=== PATIENT | female | born 1960 | race Caucasian/White ===

== ENCOUNTER 2020-07-07 05:52 | Observation (INO) ==
[2020-07-07] MEDS ORDERED: ceFAZolin 1,000 MG VIAL ONE (06:11)
[2020-07-07] MEDS ORDERED: LACTATED RINGERS 1,000 ML IV SCH (06:30)
[2020-07-07] MEDS ORDERED: ceFAZolin 1,000 MG in SYRINGE 1 EACH IV ONE (06:30)
[2020-07-07] MEDS ORDERED: BUPIVACAINE 0.5% 50 ML VIAL ONE (06:32)
[2020-07-07] MEDS ORDERED: LIDOCAINE 1%/EPI INJ 20 ML VIAL ONE (06:32)
[2020-07-07 07:01] LABS: INR 1.1; PT Patient Result 11.6 SECS (9.8-11.9); Partial Thromboplastin Time 28.2 SECS (23.9-33.8)
[2020-07-07] MEDS ORDERED: ROPIVACAINE 0.5% 30 ML VIAL ONE (07:59)
[2020-07-07] MEDS ORDERED: FAMOTIDINE 20 MG/2 ML VIAL IV ONE (08:00)
[2020-07-07] MEDS ORDERED: SODIUM CHLORIDE 0.9% 1,000 ML IV PRN ×3 (09:01→17:01)
[2020-07-07] MEDS ORDERED: MORPHINE 4 MG/1 ML VIAL IV PRN (09:57)
[2020-07-07] MEDS ORDERED: ONDANSETRON 4 MG/2 ML VIAL IV PRN ×2 (09:57→10:36)
[2020-07-07] MEDS ORDERED: propofoL 200 MG/20 ML VIAL IV ONE (10:04)
[2020-07-07] MEDS ORDERED: MIDAZOLAM 2 MG/2 ML VIAL ONE (10:05)
[2020-07-07] MEDS ORDERED: LIDOCAINE 2% 5 ML VIAL ONE ×2 (10:05→17:42)
[2020-07-07] MEDS ORDERED: SEVOFLURANE 1 UNIT/15 MINUTE INH ONE ×2 (10:05→17:42)
[2020-07-07] MEDS ORDERED: fentaNYL 100 MCG/2 ML VIAL ONE (10:05)
[2020-07-07] MEDS ORDERED: DEXAMETHASONE 4 MG/1 ML VIAL ONE (10:05)
[2020-07-07] MEDS ORDERED: GLYCOPYRROLATE 0.4 MG/2 ML VIAL ONE (10:05)
[2020-07-07] MEDS ORDERED: LACTATED RINGERS 1,000 ML IV ONE ×3 (10:06→17:43)
[2020-07-07] MEDS ORDERED: ROCURONIUM 100 MG/10 ML VIAL IV ONE (10:06)
[2020-07-07] MEDS ORDERED: ACETAMINOPHEN 1,000 MG/100 ML VIAL IV ONE (10:06)
[2020-07-07] MEDS ORDERED: NEOSTIGMINE 10 MG/10 ML VIAL ONE (10:06)
[2020-07-07] MEDS ORDERED: SODIUM CHLORIDE 0.9% 1,000 ML IV ONE ×2 (10:06→17:43)
[2020-07-07] MEDS ORDERED: HYDROmorphone 2 MG/1 ML VIAL IV PRN (10:36)
[2020-07-07 16:08] LABS: Basophils % 0.3 % (0.0-0.8); Eosinophils % 0.1 % (0.00-10.9); Hematocrit 28.1 VOL% (35.7-47.0); Hemoglobin 8.8 GM/DL (12.0-16.0); Immature Granulocytes % 7.1 %; Immature Granulocytes Absolute 0.55 #; Lymphocytes # 0.5 10*3/uL (1.4-4.0); Lymphocytes % 6.4 % (21.3-54.2); Mean Corpuscular HGB Conc 31.3 GM/DL (32-36); Mean Corpuscular Volume 86.7 FL (87-102); Mean Platelet Volume 9.4 FL (9.6-12.0); Monocytes % 1.3 % (1.7-12.7); Neutrophils % 84.8 % (38.7-73.9); Platelet Count 99 T/CUMM (130-400); Red Blood Count 3.24 MC/CUMM (3.8-5.5); Red Cell Distribution Width 14.4 % (9.3-17.3); White Blood Count 7.7 T/CUMM (4-12)
[2020-07-07 16:19] LABS: INR 1.1; PT Patient Result 11.9 SECS (9.8-11.9); Partial Thromboplastin Time 26.5 SECS (23.9-33.8)
[2020-07-07 17:21] LABS: Band Neutrophils 5 % (0-10); Hypochromasia 2+; Lymphocytes 5 % (20-55); Metamyelocytes 3 %; Myelocytes 1 %; Segmented Neutrophils 85 % (50-85); Total Cells Counted 100; Toxic Granulation 2+
[2020-07-07 17:22] LABS: Poikilocytosis 2+
[2020-07-07 17:23] LABS: Anisocytosis 1+; Polychromasia Slight
[2020-07-07 17:24] LABS: Platelet Estimate Adequate
[2020-07-07] MEDS ORDERED: PHENYLEPHRINE 1 MG/10 ML SYRINGE IV ONE (17:43)
[2020-07-07] MEDS ORDERED: SUCCINYLCHOLINE 200 MG/10 ML VIAL ONE (17:43)
[2020-07-07] MEDS ORDERED: ETOMIDATE 40 MG/20 ML VIAL IV ONE (17:43)
[2020-07-07] MEDS: ceFAZolin 2,000 MG in PREMIX 1 EACH IV SCH (22:50)
[2020-07-07] MEDS: amLODIPine 2.5 MG TABLET PO SCH (23:07)
[2020-07-08] MEDS: oxyCODONE/ACETAMINOPHEN 5-325 MG TABLET PO PRN ×3 (00:30→18:02)
[2020-07-08] MEDS: ceFAZolin 2,000 MG in PREMIX 1 EACH IV SCH (05:11)
[2020-07-08 06:10] LABS: Basophils % 0.2 % (0.0-0.8); Eosinophils % 0.2 % (0.00-10.9); Hematocrit 27.9 VOL% (35.7-47.0); Hemoglobin 8.9 GM/DL (12.0-16.0); Immature Granulocytes Absolute 0.14 #; Lymphocytes # 0.9 10*3/uL (1.4-4.0); Lymphocytes % 19.3 % (21.3-54.2); Mean Corpuscular HGB Conc 31.9 GM/DL (32-36); Mean Corpuscular Volume 85.6 FL (87-102); Monocytes % 4.8 % (1.7-12.7); Neutrophils % 72.5 % (38.7-73.9); Platelet Count 79 T/CUMM (130-400); Red Blood Count 3.26 MC/CUMM (3.8-5.5); Red Cell Distribution Width 14.7 % (9.3-17.3); White Blood Count 4.6 T/CUMM (4-12)
[2020-07-08] MEDS: LEVOTHYROXINE 75 MCG TABLET PO SCH (06:10)
[2020-07-08] MEDS: PANTOPRAZOLE 40 MG TABLET PO SCH (09:03)
[2020-07-08] MEDS: amLODIPine 5 MG TABLET PO SCH (09:03)
[2020-07-08] MEDS: FERROUS SULFATE 325 MG TABLET PO SCH (09:03)
[2020-07-08] MEDS: lisinopriL 20 MG TABLET PO SCH (09:03)
[2020-07-08 09:16] LABS: Band Neutrophils 1 % (0-10); Eosinophils 1 % (0-10); Giant Platelets Few; Hypochromasia 3+; Lymphocytes 13 % (20-55); Metamyelocytes 1 %; Microcytosis 1+; Platelet Estimate Decreased; Polychromasia Slight; Segmented Neutrophils 81 % (50-85); Tear Drop Cells Slight; Total Cells Counted 100
[2020-07-08] MEDS: amLODIPine 2.5 MG TABLET PO SCH (22:04)
[2020-07-09] MEDS: oxyCODONE/ACETAMINOPHEN 5-325 MG TABLET PO PRN ×2 (00:29→07:23)
[2020-07-09] MEDS: LEVOTHYROXINE 75 MCG TABLET PO SCH (06:17)
[2020-07-09 07:34] VITALS: BP 128/60
[2020-07-09] MEDS: amLODIPine 5 MG TABLET PO SCH (08:27)
[2020-07-09] MEDS: lisinopriL 20 MG TABLET PO SCH (08:27)
[2020-07-09] MEDS: PANTOPRAZOLE 40 MG TABLET PO SCH (08:28)
[2020-07-09] MEDS: FERROUS SULFATE 325 MG TABLET PO SCH (08:28)
== END 2020-07-09 11:35 | disposition home health service (06) ==
LOC: N.SDSINP 05:52 → N.OR 05:52 → N.SDSINP 05:53 → N.4E 11:28 → EDSDCBED 11:28 → N.SDSINP 11:28 → N.OR 07-09 11:35 → UNDODEPSDC 07-11 10:02
PROVIDERS: ADMIT Surgery; ATTEND Surgery

== ENCOUNTER 2021-03-05 11:31 | Inpatient (IN) ==
[2021-03-05] MEDS ORDERED: SODIUM CHLORIDE 0.9% 1,000 ML IV STA (11:59)
[2021-03-05] MEDS ORDERED: DEXAMETHASONE 10 MG/1 ML VIAL ONE (12:30)
[2021-03-05 12:32] LABS: INR 2.4; PT Patient Result 24.9 SECS (9.8-11.9); Partial Thromboplastin Time 58.6 SECS (23.9-33.8)
[2021-03-05] MEDS ORDERED: DEXAMETHASONE 10 MG/1 ML VIAL IV STA (12:32)
[2021-03-05 12:45] LABS: Albumin 2.7 G/DL (3.4-5.0); Bilirubin,Total 1.8 MG/DL (0.2-1.0); Total Protein 7.3 G/DL (6.4-8.2)
[2021-03-05 12:47] LABS: Basophils % 1.1 % (0.0-0.8); Eosinophils % 1.1 % (0.00-10.9); Hematocrit 28.5 VOL% (35.7-47.0); Hemoglobin 8.2 GM/DL (12.0-16.0); Immature Granulocytes % 12.1 %; Immature Granulocytes Absolute 0.21 #; Lymphocytes # 0.4 10*3/uL (1.4-4.0); Mean Corpuscular HGB Conc 28.8 GM/DL (32-36); Mean Corpuscular Volume 71.1 FL (87-102); Monocytes % 10.9 % (1.7-12.7); Neutrophils % 51.8 % (38.7-73.9); Red Blood Count 4.01 MC/CUMM (3.8-5.5); Red Cell Distribution Width 22.1 % (9.3-17.3); White Blood Count 1.7 T/CUMM (4-12)
[2021-03-05 12:48] LABS: Potassium 2.3 MMOL/L (3.5-5.1)
[2021-03-05 12:55] LABS: Platelet Count 19 T/CUMM (130-400)
[2021-03-05 13:03] LABS: Bilirubin,Urine Negative (Negative); Blood, Urine Negative (Negative); Glucose,Urine (UA) Negative (Negative); Hyaline Casts,Urine 20 /LPF (0-3); Ketones,Urine Negative (Negative); Mucus,Urine Many /LPF (Occasional); Nitrite,Urine Negative (Negative); Protein,Urine Negative; RBC,Urine <1 /HPF (0-4); Urine Appearance Slightly Hazy (Clear); Urine Color Amber (Yellow); Urine Specific Gravity 1.019 (1.001-1.035); WBC,Urine 1 /HPF (0-6)
[2021-03-05 13:07] LABS: Band Neutrophils 12 % (0-10); Eosinophils 1 % (0-10); Lymphocytes 15 % (20-55); Metamyelocytes 2 %; Myelocytes 7 %; Nucleated Red Blood Cells 9 (0-5); Segmented Neutrophils 49 % (50-85); Total Cells Counted 100
[2021-03-05 13:08] LABS: Platelet Estimate Decreased; Polychromasia Few
[2021-03-05 13:10] LABS: Anisocytosis 1+; Microcytosis 1+
[2021-03-05 13:11] LABS: Hypochromasia 2+
[2021-03-05 13:12] LABS: Ovalocytes Few
[2021-03-05] MEDS: SODIUM CHLOR 0.9% KCL 40 MEQ 40 MEQ/1,000 ML BAG IV SCH ×3 (13:52→20:36)
[2021-03-05] MEDS ORDERED: GLUCAGON 1 MG VIAL IM PRN (14:00)
[2021-03-05] MEDS ORDERED: ONDANSETRON 4 MG/2 ML VIAL IV PRN (14:00)
[2021-03-05] MEDS ORDERED: DEXTROSE 50% 25 GM/50 ML VIAL IV PRN (14:00)
[2021-03-05] MEDS ORDERED: DICLOFENAC 1% GEL 100 GM TUBE TOP PRN (14:08)
[2021-03-05] MEDS ORDERED: POTASSIUM CHLORIDE 20 MEQ TABLET PO SCH (15:00)
[2021-03-05] MEDS: DEXAMETHASONE 4 MG/1 ML VIAL IV SCH ×2 (16:30→20:37)
[2021-03-05] MEDS: LACTATED RINGERS 1,000 ML IV SCH (16:31)
[2021-03-05] MEDS: POTASSIUM CHLORIDE 20 MEQ TABLET PO SCH ×2 (18:27→21:18)
[2021-03-05 18:57] LABS: Basophils % 0.4 % (0.0-0.8); Eosinophils % 0.4 % (0.00-10.9); Hematocrit 26.9 VOL% (35.7-47.0); Hemoglobin 7.7 GM/DL (12.0-16.0); Immature Granulocytes % 14.8 %; Immature Granulocytes Absolute 0.35 #; Lymphocytes # 0.4 10*3/uL (1.4-4.0); Lymphocytes % 18.6 % (21.3-54.2); Mean Corpuscular HGB Conc 28.6 GM/DL (32-36); Mean Corpuscular Volume 71.7 FL (87-102); Monocytes % 5.9 % (1.7-12.7); NRBC # 0.09 10*3/uL; Neutrophils % 59.9 % (38.7-73.9); Red Blood Count 3.75 MC/CUMM (3.8-5.5); Red Cell Distribution Width 22.2 % (9.3-17.3); White Blood Count 2.4 T/CUMM (4-12)
[2021-03-05 19:12] LABS: Platelet Count 15 T/CUMM (130-400)
[2021-03-05 19:14] LABS: Albumin 2.6 G/DL (3.4-5.0); Bilirubin,Total 1.6 MG/DL (0.2-1.0); Calcium 8.5 MG/DL (8.5-10.1); Osmolality,Calculated 289.8 MOS/KG (273-304); Potassium 2.9 MMOL/L (3.5-5.1); Total Protein 7.2 G/DL (6.4-8.2)
[2021-03-05 19:25] LABS: Band Neutrophils 24 % (0-10); Lymphocytes 9 % (20-55); Metamyelocytes 5 %; Myelocytes 4 %; Nucleated Red Blood Cells 3 (0-5); Platelet Estimate Decreased; Segmented Neutrophils 54 % (50-85); Total Cells Counted 100
[2021-03-05 19:27] LABS: Anisocytosis 1+; Hypochromasia 2+; Polychromasia Few
[2021-03-05 19:28] LABS: Microcytosis 1+; Ovalocytes Few
[2021-03-05] MEDS: HYDROmorphone 2 MG/1 ML VIAL IV PRN (22:07)
[2021-03-06] MEDS: LACTATED RINGERS 1,000 ML IV SCH ×3 (01:09→13:48)
[2021-03-06] MEDS: SODIUM CHLOR 0.9% KCL 40 MEQ 40 MEQ/1,000 ML BAG IV SCH ×3 (01:11→10:17)
[2021-03-06] MEDS: DEXAMETHASONE 4 MG/1 ML VIAL IV SCH ×4 (02:43→21:43)
[2021-03-06] MEDS: HYDROmorphone 2 MG/1 ML VIAL IV PRN ×3 (02:48→18:02)
[2021-03-06 06:01] LABS: Albumin 2.6 G/DL (3.4-5.0); Bilirubin,Total 1.8 MG/DL (0.2-1.0); Calcium 8.6 MG/DL (8.5-10.1); Osmolality,Calculated 291.7 MOS/KG (273-304); Potassium 3.7 MMOL/L (3.5-5.1); Thyroid Stimulating Hormone 9.8 uIU/ml (0.358-3.74); Total Protein 7.2 G/DL (6.4-8.2)
[2021-03-06 06:15] LABS: Basophils % 0.8 % (0.0-0.8); Hematocrit 27.3 VOL% (35.7-47.0); Hemoglobin 7.8 GM/DL (12.0-16.0); Immature Granulocytes % 13.9 %; Lymphocytes # 0.6 10*3/uL (1.4-4.0); Lymphocytes % 16.2 % (21.3-54.2); Mean Corpuscular HGB Conc 28.6 GM/DL (32-36); Mean Corpuscular Volume 74.4 FL (87-102); Monocytes % 6.7 % (1.7-12.7); NRBC # 0.13 10*3/uL; Neutrophils % 62.4 % (38.7-73.9); Red Blood Count 3.67 MC/CUMM (3.8-5.5); Red Cell Distribution Width 23.4 % (9.3-17.3); White Blood Count 3.6 T/CUMM (4-12)
[2021-03-06 06:17] LABS: Platelet Count 11 T/CUMM (130-400)
[2021-03-06 06:29] LABS: Band Neutrophils 4 % (0-10); Lymphocytes 19 % (20-55); Metamyelocytes 8 %; Nucleated Red Blood Cells 1 (0-5); Platelet Estimate Decreased; Total Cells Counted 100
[2021-03-06 06:30] LABS: Anisocytosis 2+; Macrocytosis 1+; Microcytosis 1+; Myelocytes 6 %; Polychromasia 2+; Segmented Neutrophils 56 % (50-85)
[2021-03-06] MEDS ORDERED: SODIUM CHLORIDE 0.9% 1,000 ML IV PRN (08:40)
[2021-03-06] MEDS: PANTOPRAZOLE 40 MG TABLET PO SCH (12:10)
[2021-03-06] MEDS: LEVOTHYROXINE 75 MCG TABLET PO SCH (12:11)
[2021-03-06] MEDS: amLODIPine 5 MG TABLET PO SCH (12:12)
[2021-03-06] MEDS: lisinopriL 20 MG TABLET PO SCH (12:12)
[2021-03-06 13:38] LABS: ABG Base Excess 3.5 MMOL/L (-2.5-2.5); ABG HCO3 27.4 MMOL/L (20-26); ABG Oxygen Saturation 90.8 % (95-100); ABG PCO2 32.8 MM HG (35-48); ABG PH 7.513 (7.35-7.45); ABG PO2 62.3 MM HG (80-95); ABG TCO2 24.5 MMOL/L (23-27); Allen Test Positive
[2021-03-06] MEDS: MORPHINE 4 MG/1 ML VIAL IV PRN ×2 (16:06→22:17)
[2021-03-06] MEDS: LORazepam 2 MG/1 ML VIAL IV PRN (17:12)
[2021-03-07] MEDS: HYDROmorphone 2 MG/1 ML VIAL IV PRN ×7 (00:03→20:43)
[2021-03-07] MEDS: LORazepam 2 MG/1 ML VIAL IV PRN (02:44)
[2021-03-07] MEDS: LACTATED RINGERS 1,000 ML IV SCH ×2 (03:19→15:27)
[2021-03-07] MEDS: DEXAMETHASONE 4 MG/1 ML VIAL IV SCH ×4 (03:20→20:38)
[2021-03-07] MEDS: MORPHINE 4 MG/1 ML VIAL IV PRN ×4 (04:31→22:59)
[2021-03-07 09:27] LABS: Basophils % 0.7 % (0.0-0.8); Eosinophils % 0.2 % (0.00-10.9); Hematocrit 27.1 VOL% (35.7-47.0); Hemoglobin 7.7 GM/DL (12.0-16.0); Immature Granulocytes % 14.8 %; Immature Granulocytes Absolute 0.82 #; Lymphocytes # 0.9 10*3/uL (1.4-4.0); Lymphocytes % 15.6 % (21.3-54.2); Mean Corpuscular HGB Conc 28.4 GM/DL (32-36); Mean Corpuscular Volume 73.6 FL (87-102); Monocytes % 6.5 % (1.7-12.7); NRBC # 0.33 10*3/uL; Neutrophils % 62.2 % (38.7-73.9); Red Blood Count 3.68 MC/CUMM (3.8-5.5); Red Cell Distribution Width 24.9 % (9.3-17.3); White Blood Count 5.5 T/CUMM (4-12)
[2021-03-07 09:34] LABS: Platelet Count 14 T/CUMM (130-400)
[2021-03-07] MEDS ORDERED: LORazepam 2 MG/1 ML VIAL IV PRN (09:37)
[2021-03-07 09:45] LABS: Albumin 2.7 G/DL (3.4-5.0); Bilirubin,Total 1.8 MG/DL (0.2-1.0); Osmolality,Calculated 302.4 MOS/KG (273-304); Potassium 4.2 MMOL/L (3.5-5.1); Total Protein 7.5 G/DL (6.4-8.2)
[2021-03-07 09:48] LABS: Band Neutrophils 3 % (0-10); Lymphocytes 11 % (20-55); Segmented Neutrophils 77 % (50-85); Total Cells Counted 100
[2021-03-07 09:49] LABS: Microcytosis 1+
[2021-03-07 09:50] LABS: Hypochromasia 1+; Ovalocytes 1+; Platelet Estimate Decreased; Tear Drop Cells Slight
[2021-03-07 09:51] LABS: Polychromasia Slight
[2021-03-07 11:20] VITALS: BP 118/87
[2021-03-07] MEDS: lisinopriL 20 MG TABLET PO SCH (11:44)
[2021-03-07] MEDS: LEVOTHYROXINE 75 MCG TABLET PO SCH (11:44)
[2021-03-07] MEDS: PANTOPRAZOLE 40 MG TABLET PO SCH (11:44)
[2021-03-07] MEDS: amLODIPine 5 MG TABLET PO SCH (11:44)
[2021-03-08] MEDS: DEXAMETHASONE 4 MG/1 ML VIAL IV SCH ×2 (01:32→08:31)
[2021-03-08] MEDS: HYDROmorphone 2 MG/1 ML VIAL IV PRN ×4 (01:37→12:51)
[2021-03-08] MEDS: amLODIPine 5 MG TABLET PO SCH (08:49)
[2021-03-08] MEDS: lisinopriL 20 MG TABLET PO SCH (08:49)
[2021-03-08] MEDS: PANTOPRAZOLE 40 MG TABLET PO SCH (08:49)
[2021-03-08] MEDS: LEVOTHYROXINE 75 MCG TABLET PO SCH (08:49)
[2021-03-08] MEDS: MORPHINE 4 MG/1 ML VIAL IV PRN (12:14)
== END 2021-03-08 14:32 | disposition expired | DRG 54 ==
LOC: N.ED 11:31 → SUATTDRO 14:01 → N.EDINP 14:01 → N.4E 15:00
PROVIDERS: ADMIT Internal Medicine; ATTEND Internal Medicine